=== PATIENT | female | born 1945 | race Caucasian/White ===

== ENCOUNTER 2016-08-07 06:28 | Emergency (ER) | payer OTHER, MEDICAID ==
--- NOTE | 2016-08-07 06:45 | DR.CA ---
HPI - Time Seen Time seen: 06:10 - HPI Comment HPI Comment: PATIENT HERE FROM [facility] WITH [facility] IN [facility].PATIENT WAS FOUND IN HER BED NOT BREATHING. THERE WAS NO HEART RATE. CPR STARTED AND SHE WAS TRANSPORTED TO THE ED DEPARTMENT. - Complaint Chief Complaint Doctor Comments: CARDIAC ARREST. - Reviewed Nurses Notes Review: Yes - Source History Provided: [facility] - Mode of arrival Mode of Arrival: Stretcher - Context Onset: Unknown History R/T Cardiac Arrest: Unknown Prehospital: Treatment: CPR Prehospital: Response to Treatment: No Response - Associated Signs and Symptoms Associated Signs and Symptoms: Unknown PMH - PMH Past Medical History: Anemia, Anxiety, Depression, Diabetes, Dyslipidemia, GERD , Gout, Hypothyroidism, Renal Disease Past Surgical History: Yes Surgical History: Unknown, Other - Social History Do you use any recreational Drugs:: No ROS - Review of Systems Constitutional: Other (UNRESPONSIVE) Eyes: Other (UNRESPONSIVE) Respiratoy: Other (NO SPONTANOUS RESPIRATION) Cardiovascular: Other (NO HR OR PULSE) Gastrointestinal/Abdominal: Other (SECREATION SUCTION FROM MOUTH, MILKY COLOR.) Genitourinary: Other (UNRESPONSIVE) Neurological: Other (UNRESPONSIVE.) Musculoskeletal: Other (CONTRATURES EXTREMITIES.) Integumentary: Other (SKIN COLD) Hematologic/Lymphatic: Other (UNRESPONSIVE) Psychiatric: Other (UNRESPONSIVE.) Unable to Obtain Due To: Intubated (IN ED.) PE - Vitals Vital Signs: Temp Pulse Resp BP BP BP Pulse Ox 08/07/16 06:58 95.6 F L 0 L 0 L 0/0 0 L 05/03/16 08:00 107/67 107/67 04/24/16 00:00 73/39 - General Limitations: Other (UNRESPONSIVE) General Appearance: Other (UNRESPONSIVE) - Head Head Exam: Atraumatic - Eyes Eye exam: negative: Scleral Icterus, Conjunctival Injection Eyes: Pupils: Fixed, Dilated - ENT ENT Exam: Normal External Ear Exam - Airway Airway: Intubated ET tube placement confirmed by: ETCO2 Gag: Absent - Neck Neck Exam: Other (CONTRACTED, DEVIATED TO RIGHT.) - Chest Chest Inspection: Other (UNRESPNSIVE. NO SPONTANOUS HR OR BREATHING.) Expanded Chest Exam: Other (NONE) - Respiratory Ventilation: Assisted Respiratory Exam: Other (NO SPONTANOUS RESPIRATION) - Cardiovascular Cardiovascular Exam: Other (NO HR OR SPOTANOUS RESP.) - Abdominal Exam Abdominal Exam: Other (NO BOWEL SOUNDS) - Extremities Extremities Exam: Other (CONTRACTURES EXTREMITIES) - Back Back Exam: Other (CARDIAC ARREST/UNRESPONSIVE) - Neurologic Neurological Exam: Other (CARDIAC ARREST) - Psychiatric Psychiatric Exam: Other (UNRESPONSIV/CARDIAC ARREST) - Skin Skin Exam: Other (SKIN COLD) - Diagnosis Discharge Problem: Cardiopulmonary arrest - Discharge Plan Disposition: 20 Condition: Stable - Follow ups/Referrals Follow ups/Referrals: CARIE LOVELL [Primary Care Provider] - 3 days - Instructions MDM - Differential Diagnosis Differential Diagnosis: Cardiopulmonary Arrest Course - Treatment Treatment: SEE CODE NOTE. - Consultation Consultation Comments: SPOKE WITH FAMILY MEMBERS OF PATIENT AND INFORM THEM OF HER . - Education/Counseling Educated On: Treatment ( PER CODE NOTE), Diagnosis
[2016-08-07 07:06] VITALS: BP 0/0; BMI 25.0
[2016-08-07] MEDS ORDERED: NS 1000 ML 1,000 ML ONE (22:22)
== END 2016-08-07 09:30 | disposition expired ==
LOC: ER 06:28
PROC: 0BH17EZ Insertion of Endotracheal Airway into Trachea, Via Natural or Artificial Opening (ICD-10-PCS; principal; 2016-08-07)
PROC: 5A12012 Performance of Cardiac Output, Single, Manual (ICD-10-PCS; principal; 2016-08-07)
DX: I46.9 Cardiac arrest, cause unspecified (principal)
CPT/HCPCS: 31500; 92950; 99283; 99285